=== PATIENT | female | born 1970 | race Caucasian/White ===

== ENCOUNTER 2018-02-17 12:22 | Emergency (ER) | payer OTHER ==
[2018-02-17 12:28] VITALS: BP 127/67; PULSE 75; RESP 18; TEMP 98.1
--- NOTE | 2018-02-17 13:02 | ED ---
General Adult HPI - General Chief complaint: Needlestick/Exposure Stated complaint: needle stick,[facility] Time Seen by Provider: 02/17/18 12:49 Source: patient, RN notes reviewed Mode of arrival: ambulatory Limitations: no limitations - History of Present Illness Initial comments: 47-year-old female presents emergency Department chief complaint of needlestick. Patient states that she was putting back 4 x 4 gauze into a bag. Patient states he was an open needle. She states this is not from her today. She is unsure how long this has been in there. It did strike her right hand third digit. Patient states her tetanus is up-to-date. There was minimal bleeding. - Related Data Allergies Allergy/AdvReac Type Severity Reaction Status Date / Time codeine Allergy Unknown Verified 02/17/18 12:27 Review of Systems ROS Statement: Those systems with pertinent positive or pertinent negative responses have been documented in the HPI. ROS Other: All systems not noted in ROS Statement are negative. Past Medical History Past Medical History: No Reported History History of Any Multi-Drug Resistant Organisms: None Reported Past Surgical History: No Surgical Hx Reported Past Psychological History: No Psychological Hx Reported Smoking Status: Never smoker Past Alcohol Use History: Rare Past Drug Use History: None Reported General Exam Limitations: no limitations General appearance: alert, in no apparent distress Respiratory exam: Present: normal lung sounds bilaterally. Absent: respiratory distress, wheezes, rales, rhonchi, stridor Cardiovascular Exam: Present: regular rate, normal rhythm, normal heart sounds. Absent: systolic murmur, diastolic murmur, rubs, gallop, clicks Skin exam: Present: other (Puncture wound noted to the right hand third digit no active bleeding full range of motion) Course Vital Signs 02/17/18 12:24 Temperature 98.1 F Pulse Rate 75 Respiratory 18 Rate Blood Pressure 127/67 O2 Sat by Pulse 98 Oximetry Medical Decision Making - Medical Decision Making 47-year-old female presented emergency department for needle stick. This appears to be an old needle. There was some bleeding. Tetanus is up-to-date. I did discuss prophylactic HIV though this is quite at this time rapid HIV and hepatitis screening will be performed. Disposition Clinical Impression: Needle stick injury Disposition: HOME SELF-CARE Condition: Stable Instructions: Needle Stick Injuries (ED) Additional Instructions: Please return to the Emergency Department if symptoms worsen or any other concerns. Is patient prescribed a controlled substance at d/c from ED?: No Referrals: Nonstaff,Physician [Primary Care Provider] - 1-2 days Time of Disposition: 13:02
[2018-02-17 19:34] LABS: Hepatitis C IgG Antibody Non-Reactive (Non-Reactive)
[2018-02-17 20:47] LABS: HIV 1 AB Non-Reactive (Non-Reactive); HIV AB P24 Non-Reactive (Non-Reactive); HIV P24 AG Non-Reactive (Non-Reactive)
[2018-02-17 20:52] LABS: Hepatitis B Surface AB- Quant 7.7 mIU/mL
== END 2018-02-17 14:17 | disposition home or self-care (01) ==
LOC: EC 12:22
DX: S69.81XA Other specified injuries of right wrist, hand and finger(s), initial encounter (principal); Z77.21 Contact with and (suspected) exposure to potentially hazardous body fluids; Z88.5 Allergy status to narcotic agent; W46.0XXA Contact with hypodermic needle, initial encounter; Y92.69 Other specified industrial and construction area as the place of occurrence of the external cause; Y99.0 Civilian activity done for income or pay
CPT/HCPCS: 36415; 86706; 86803; 87390; 99283